=== PATIENT | female | born 1955 | race Caucasian/White ===

== ENCOUNTER 2017-03-21 07:00 | Day surgery (SDC) | payer MEDICARE, OTHER ==
[~2017-03-21 07:00] MED LIST: ACETAMINOPHEN 1,000 MG/100 ML BTL IV ONE; CEFAZOLIN 1 Gram 1 GM/50 ML BAG IVPB ONE; FAMOTIDINE 20MG TABLET PO ONE; MECLIZINE 25 MG TABLET PO ONE; METOCLOPRAMIDE 10 MG TABLET PO ONE
[2017-03-21] MEDS ORDERED: LIDOCAINE 2% MDV (20MG/ML) 20ML VIAL IV ONE (07:01)
[2017-03-21] MEDS ORDERED: GLYCOPYRROLATE 0.2 MG/ML ML IV ONE (07:01)
[2017-03-21] MEDS ORDERED: ONDANSETRON HCL IV 4 MG/2 ML VIAL IVP ONE (07:01)
[2017-03-21] MEDS ORDERED: HYDROCODONE/APAP 5/325MG TABLET PO ONE (07:01)
[2017-03-21] MEDS ORDERED: PROPOFOL 10 MG/ML VIAL IV ONE (07:01)
[2017-03-21] MEDS ORDERED: BUPIVACAINE 0.75% W/EPI MPF 30ML VIAL IVP ONE (07:01)
[2017-03-21] MEDS ORDERED: NEOSTIGMINE 1 MG/1 ML,10ML VIAL IV ONE (07:01)
[2017-03-21] MEDS ORDERED: MIDAZOLAM HCL 2MG/2ML VIAL IV ONE (07:01)
[2017-03-21] MEDS ORDERED: DEXAMETHASONE 4 MG/ML 1ML VIAL IVP ONE (07:01)
[2017-03-21] MEDS ORDERED: ROCURONIUM BROMIDE 50MG/5ML VIAL IV ONE (07:01)
[2017-03-21] MEDS ORDERED: HYDROMORPHONE HCL 2 MG/ML VIAL IV ONE ×2 (07:01)
[2017-03-21] MEDS ORDERED: EPHEDRINE SULFATE 50 MG/ML ML IV ONE (07:01)
[2017-03-21 07:59] LABS: BASO % 0.2 % (0-6); EOS % 0.9 % (0-6); GRAN % 60.9 % (47-80); HEMATOCRIT 41.8 % (35.0-47.0); HEMOGLOBIN 13.5 gm/dl (11.6-16.0); LYMPH % 25.1 % (16-45); MEAN CELL VOLUME 86.4 fl (81-97); MEAN CORPUSCULAR HEMOGLOBIN 27.9 pg (27-33); MEAN CORPUSCULAR HGB CONC 32.3 g/dl (32-36); MEAN PLATELET VOLUME 9.3 fl (7.4-10.4); MONO % 12.9 % (0-9); PLATELET COUNT 225 K/uL (130-400); RED BLOOD COUNT 4.84 M/uL (3.80-5.40); RED CELL DISTRIBUTION WIDTH 16.4 % (11.5-14.5); WHITE BLOOD COUNT W/O DIFF 5.7 K/uL (4.2-12.2)
[2017-03-21 08:43] LABS: BLOOD UREA NITROGEN 13 mg/dL (8-23); CREATININE 0.7 mg/dL (0.5-0.9); EST GLOMERULAR FILTRATION RATE > 60 mL/min; GLUCOSE,RANDOM 121 mg/dL (74-109)
--- NOTE | 2017-03-22 10:30 | Operative Note ---
DATE OF SURGERY: 03/21/2017 Surgeon: Avery Buitrago DO PREOPERATIVE DIAGNOSES: 1. Recurrent incarcerated umbilical hernia. 2. Reducible left femoral hernia. POSTOPERATIVE DIAGNOSES: 1. Recurrent incarcerated umbilical hernia. 2. Reducible left femoral hernia. OPERATION: Laparoscopic left femoral herniorrhaphy with mesh and umbilical herniorrhaphy with mesh. Indication: The patient is a 62-year-old male who presented to the clinic with pain and bulging in the left inguinal region. It appeared that she had a femoral hernia. She also had a recurrent incarcerated umbilical hernia. The prior repair was done as an open repair, open repair non-mesh based. She cannot recall when. We did discuss laparoscopic approach; risks, benefits, and alternatives. We let her know that we would fix her inguinal hernia at the same time. She is on chronic narcotics and we did discuss postop pain control. She understood this fully. PROCEDURE: Thereafter consent was signed and questions answered. She was taken to the operating room and placed in a supine position. General anesthesia was administered per the department of anesthesia. The patient's abdomen and inguinal region were prepped and draped in the usual fashion. The patient's right arm was tucked to the side. At this time, timeout was performed. She did receive preoperative antibiotic. The supraumbilical region was anesthetized with a total of 5 mL of 0.25% Sensorcaine with epinephrine. I did use her prior incision. A 2.5 cm curvilinear supraumbilical incision was made. This was carried down through the subcutaneous tissues where we encountered a hernia sac. This was dissected free from the surrounding fascial edges and the hernia sac was amputated. Stay sutures of 0 Vicryl were placed and through the hernia we placed a 10 mm blunt Amaury port. The patient was rotated into steep Trendelenburg position. Additional 5 mm left port and 5 mm right port were placed at the level of the navel at the mid clavicular line. At this time, general exam was done. The patient did have a moderate size femoral hernia. The patient also had a small right inguinal hernia as well. This was not clinically evident at the time of our consultation, and this was asymptomatic. Therefore, the peritoneum was scored in S-shaped fashion starting from the ASIS to the medial umbilical ligament on the patient's left. A large inferior flap was developed. I did skip over the femoral hernia and exposed tubercle ligament and symphysis pubis medially. The femoral hernia was then reduced with gentle traction. This was a fat-containing hernia sac. At this time, a large 3D Max mesh was obtained. This was placed covering the entire myopectineal orifice on the left. Tacks went at posterior aspect of the rectus, either side of the epigastric vessels, up and above triangle of pain and at level of Kirill's ligament. We had excellent overlap and coverage. At this time, I did re-peritonealize the side and placed another loop on the femoral hernia sac. I did switch to a 5 mm angled lens and this was placed through the left-sided lateral port. The Amaury trocar was removed and a 6.4 cm Ventralight mesh was obtained. This was placed in the intraperitoneal position. This did lay flat covering the umbilical hernia. At this time, the patient was leveled out. Pneumoperitoneum was released. All ports removed. The umbilical mesh was sutured in 4 spots with 2-0 Vicryl. The tails overlapped the fascia and were sutured in place as well. The umbilical skin was closed with 3-0 and 4-0 Vicryl, and 4-0 Vicryl was used for the port sites. Dermabond was placed, and she was taken to the recovery room in satisfactory condition. FINDINGS AT THE TIME OF SURGERY: Recurrent incarcerated umbilical hernia and left femoral hernia repaired as above. CC: Dr. Missy SUAREZ
== END 2017-03-21 11:35 | disposition home or self-care (01) ==
LOC: SUR 07:00
PROVIDERS: ATTEND Surgery
DX: K42.0 Umbilical hernia with obstruction, without gangrene (principal); K41.90 Unilateral femoral hernia, without obstruction or gangrene, not specified as recurrent; Z79.01 Long term (current) use of anticoagulants; G40.909 Epilepsy, unspecified, not intractable, without status epilepticus; E78.00 Pure hypercholesterolemia, unspecified; Z86.718 Personal history of other venous thrombosis and embolism
CPT/HCPCS: 49653; 49659; 00752; 85025; 80048; J2405; J0690; J1170; J3490; J2710

== ENCOUNTER 2019-05-06 20:18 | Inpatient (IN) | payer MEDICARE, OTHER ==
[2019-05-06] MEDS ORDERED: ALBUTEROL (0.5% CONCENTRATED) 2.5 MG/0.5 ML VIAL.NEB INH ONE (20:29)
[2019-05-06] MEDS ORDERED: IPRATROPIUM/ALBUTEROL (0.5MG/3MG) NEB INH ONE (20:30)
[2019-05-06] MEDS ORDERED: METHYLPREDNISOLONE PF 125MG/VIAL IVP ONE (20:40)
--- NOTE | 2019-05-06 20:48 | Emergency Department Record ---
History of Present Illness - General Chief Complaint: Shortness of breath Stated Complaint: DRISS,COUGH Time Seen by Provider: 05/06/19 20:30 Source: Patient, Family Mode of Arrival: Ambulatory Limitations: No limitations - History of Present Illness Initial Comments: The patient is here due to a cough and SOB for almost 2 weeks. She does have clear phlegm at times. The patient denies any fever, chills, CP or back pain. She does have a hx of COPD and does have inhallers at home but they are not helping. MD Complaint: Cough, Shortness of breath Onset/Timin -: Week(s) Improves With: Bronchodilators, Oxygen, Upright position Worsens With: Coughing Known History Of: COPD Associated Symptoms: Cough Treatments Prior to Arrival: Bronchodilator - Related Data Home Oxygen Therapy: No Allergies Allergy/AdvReac Type Severity Reaction Status Date / Time latex [LATEX] Allergy Unknown SWELLING Unverified 02/09/19 13:52 OF THE LIPS NSAIDS (Non-Steroidal Allergy Unknown SWOLLEN Unverified 02/09/19 13:52 Anti-Inflamma EYES, [NSAIDS (NON-STEROIDAL SWOLLEN ANTI-INFLAMMA] FACE gabapentin [From Neurontin] AdvReac Intermediate LOSS OF Unverified 02/09/19 13:52 VISSION AND BALANCE albuterol AdvReac WHEEZING Unverified 02/09/19 13:52 alprazolam [From Xanax] AdvReac FATIGUE Unverified 02/09/19 13:52 celecoxib [From Celebrex] AdvReac SWELLING Unverified 02/09/19 13:52 OF THE FACE codeine AdvReac NAUSEA AND Unverified 02/09/19 13:52 VOMITING diclofenac [From Voltaren] AdvReac SWELLING Unverified 02/09/19 13:52 OF THE LIPS phenytoin [From Dilantin] AdvReac PT UNSURE Unverified 02/09/19 13:52 OF REACTION zaleplon [From Sonata] AdvReac PT UNSURE Unverified 02/09/19 13:52 OF REACTION Travel Screening - Travel/Exposure Within Last 30 Days Have you traveled within the last 30 days?: No - Travel Symptoms Symptom Screening: None Review of Systems Constitutional: Reports: Malaise. Denies: Chills, Fever Eyes: Denies: Eye discharge ENT: Reports: Congestion Respiratory: Reports: Cough, Dyspnea. Denies: Hemoptysis Cardiovascular: Denies: Arrhythmia, Chest pain Endocrine: Reports: Fatigue Gastrointestinal: Denies: Diarrhea, Vomiting Genitourinary: Denies: Dysuria Musculoskeletal: Denies: Arthralgia Neurological: Denies: Abnormal gait Past Medical History - SOCIAL HISTORY Smoking Status: Current every day smoker Alcohol Use: None Drug Use: None - RESPIRATORY Hx Respiratory Disorders: Yes Hx Asthma: Yes Hx COPD: Yes (EARLY) Hx Pulmonary Embolism: Yes (POSSIBLE D/T POST SCARRING IN LEFT LUNG) - CARDIOVASCULAR Hx Cardio Disorders: Yes Hx Deep Vein Thrombosis: Yes Hx Edema: Yes Hx Vascular Disease: Yes - NEURO Hx Neuro Disorders: Yes Hx Seizures: Yes (MOSTLY DURING STRESS LAST ONE OVER YEAR AGO) - GI Hx GI Disorders: Yes Hx Abdominal Pain: Yes (LIH) Comment:: UMBILICAL AND LIH - Hx Genitourinary Disorders: No - ENDOCRINE Hx Endocrine Disorders: No - MUSCULOSKELETAL Hx Musculoskeletal Disorders: Yes Hx Arthritis: Yes (PSORIATIC) Hx Osteoporosis: Yes Comment:: SCOLIOSIS - PSYCH Hx Psych Problems: Yes Hx Depression: Yes - HEMATOLOGY/ONCOLOGY Hx Hematology/Oncology Disorders: Yes Hx Blood Disorders: Yes (TAKES BLOOD THINNER) Hx Cancer: Yes (CERVIX HAD TX WITH CYRO) Family Medical History Any Significant Family History?: No Family Hx Comment (NOT TO BE USED IN PLACE OF ITEMS BELOW): denies Physical Exam - General General Appearance: Alert, Oriented x3, Cooperative, No acute distress (The patient is doing much better after 3 breathing tx's and is speaking in full sentences.) - Head Head exam: Atraumatic, Normocephalic - Eye Eye exam: Normal appearance, PERRL, EOMI - ENT Throat exam: Normal inspection. negative: Tonsillar erythema, Tonsillar exudate - Neck Neck exam: Normal inspection, Full ROM. negative: Tenderness - Respiratory Respiratory exam: Decreased breath sounds, Wheezes (in all melgar.). negative: Normal lung sounds bilaterally, Accessory muscle use, Respiratory distress - Cardiovascular Cardiovascular Exam: Regular rate, Normal rhythm, Normal heart sounds - GI/Abdominal GI/Abdominal exam: Soft, Normal bowel sounds. negative: Tenderness - Extremities Extremities exam: Normal inspection, Full ROM, Normal capillary refill. negative: Tenderness - Neurological Neurological exam: Alert, Normal gait. negative: Abnormal gait, Motor sensory deficit - Psychiatric Psychiatric exam: negative: Anxious Course Vital Signs 05/06/19 05/06/19 20:25 20:40 Temperature 97.7 F Pulse Rate 84 Pulse Rate [ 96 H Pulse Ox Probe] Respiratory 26 H Rate Blood Pressure 199/120 Blood Pressure 143/101 [Left Arm] Pulse Ox 80 L 94 L - Reevaluation(s) Reevaluation #1: The patient is doing better but is still wheezing on exam Her O2 sats are running low 90's on 2 liters of O2. I do believe the patient will need an overnight stay and she does agree to the plan. We will admit the patient to Dr. Dean who is her PCP. 05/06/19 21:55 Medical Decision Making - Data Complexity MDM Data: Labs Ordered and/or Reviewed, X-Ray Ordered and/or Reviewed - Lab Data Result diagrams: 05/06/19 20:40 05/06/19 20:40 - Radiology Data Radiology results: Report reviewed (CXR: COPD. Neg for acute infiltrate.) Disposition Disposition: Admit Clinical Impression: COPD (chronic obstructive pulmonary disease) Qualifiers: COPD type: COPD with acute exacerbation Qualified Code(s): J44.1 - Chronic obstructive pulmonary disease with (acute) exacerbation Disposition: Still a Patient at [facility] Decision to Admit: Admit from ER Decision to Admit Date: 05/06/19 Decision to Admit Time: 21:56 Accepting Physician: Jermaine Time Discussed w/Accepting Physician: 21:56 Condition: (2) Stable Forms: Patient Portal Access Time of Disposition: 21:56 Quality - Quality Measures Quality Measures: N/A - Blood Pressure Screening View Details: Yes Does Patient Have Any of the Following: Active Dx of HTN Blood Pressure Classification: Hypertensive Reading Systolic Measurement: 199 Diastolic Measurement: 120 Screening for High Blood Pressure: Patient Exclusion, Hx of HTN [[id number]]
[2019-05-06 20:50] LABS: ABSOLUTE NEUTROPHIL COUNT 4.88; BASO % 0.1 % (0-6); EOS % 1.3 % (0-6); GRAN % 65.3 % (47-80); HEMATOCRIT 44.4 % (35.0-47.0); HEMOGLOBIN 14.4 gm/dl (11.6-16.0); LYMPH % 24.6 % (16-45); MEAN CELL VOLUME 96.5 fl (81-97); MEAN CORPUSCULAR HEMOGLOBIN 31.3 pg (27-33); MEAN CORPUSCULAR HGB CONC 32.4 g/dl (32-36); MEAN PLATELET VOLUME 9.3 fl (7.4-10.4); MONO % 8.7 % (0-9); PLATELET COUNT 185 K/uL (130-400); RED CELL DISTRIBUTION WIDTH 13.8 % (11.5-14.5); WHITE BLOOD COUNT W/O DIFF 7.5 K/uL (4.2-12.2)
[2019-05-06 21:02] LABS: INR 0.9; PROTHROMBIN TIME (PATIENT) 9.7 SECONDS (9.5-12.1)
[2019-05-06 21:06] LABS: BLOOD UREA NITROGEN 18 mg/dL (8-23); CREATININE 0.9 mg/dL (0.5-0.9); EST GLOMERULAR FILTRATION RATE > 60 mL/min; TOTAL PROTEIN 6.7 g/dL (6.6-8.7)
[2019-05-06 21:08] LABS: GLUCOSE,RANDOM 101 mg/dL (74-109)
[2019-05-06 21:11] LABS: ALB/GLOB RATIO 1.7 (1.1-1.8); ALBUMIN 4.2 g/dL (4.0-5.0); ALKALINE PHOSPHATASE 77 U/L (35-104); ALT/SGPT 12 U/L (<33); AST/SGOT 15 U/L (10.0-35.0)
[2019-05-06] MEDS: ALBUTEROL SULFATE (0.083%) 2.5 MG/3 ML NEB INH ONE ×2 (21:16→22:02)
[2019-05-06] MEDS ORDERED: MAGNESIUM SULFATE 16 MEQ in 0.9 % SODIUM CHLORIDE 100ML 100 ML IV ONE (21:49)
[2019-05-06] MEDS ORDERED: AZITHROMYCIN 500 MG in 0.9 % SODIUM CHLORIDE 250ML 250 ML IVPB ONE (21:49)
[2019-05-06] MEDS ORDERED: CEFTRIAXONE 1GM/50ML BAG 1 GM/50 ML BAG IVPB ONE (21:54)
[2019-05-06] MEDS ORDERED: ALBUTEROL SULFATE (0.083%) 2.5 MG/3 ML NEB INH ONE (22:01)
--- NOTE | 2019-05-06 22:01 | RADIOLOGY REPORT ---
EXAMINATION: Two View Chest Radiographs EXAM DATE: 05/06/2019 9:51 PM TECHNIQUE: Frontal and lateral views INDICATION: DRISS COMPARISON: None ENCOUNTER: Not applicable FINDINGS: The heart, mediastinum, and pulmonary vasculature are normal. No lung consolidation or pleural effu sions are present. IMPRESSION: No acute pulmonary disease process Dictated by: Yesy Burger DO on 05/06/2019 9:59 PM. .
[2019-05-06] MEDS ORDERED: FLUTICASONE/SALMETEROL 500/50 DISKUS INH SCH (22:53)
[2019-05-06] MEDS ORDERED: Non-Formulary MISC (Duloxetine Hcl [Cymbalta] 60 MG) PO SCH (22:53)
[2019-05-06] MEDS ORDERED: LEVETIRACETAM PO SCH (22:53)
[2019-05-06] MEDS ORDERED: Non-Formulary MISC (Atorvastatin Calcium [Lipitor] 40 MG) PO SCH (22:53)
[2019-05-07] MEDS ORDERED: LEVETIRACETAM PO SCH (00:15)
[2019-05-07] MEDS ORDERED: LEVETIRACETAM 1500 MG PO SCH (00:15)
[2019-05-07] MEDS: GUAIFENESIN/D-METH. 10 ML UDC PO PRN ×4 (00:16→17:45)
[2019-05-07] MEDS: LEVETIRACETAM 500 MG TABLET PO SCH ×3 (00:17→22:53)
[2019-05-07] MEDS: BENZONATATE 100 MG CAPSULE PO PRN ×3 (00:18→17:45)
[2019-05-07] MEDS: APIXABAN 5MG TABLET PO SCH ×3 (00:19→22:53)
[2019-05-07] MEDS: ATORVASTATIN 20 MG TABLET PO SCH ×2 (00:20→22:53)
[2019-05-07] MEDS: ALBUTEROL SULFATE (0.083%) 2.5 MG/3 ML NEB INH PRN ×2 (00:25→16:59)
[2019-05-07] MEDS: IPRATROPIUM/ALBUTEROL (0.5MG/3MG) NEB INH SCH ×6 (00:30→22:10)
[2019-05-07] MEDS ORDERED: NICOTINE14 MG/24 HOUR PATCH TD SCH (01:15)
[2019-05-07] MEDS: ACETAMINOPHEN 325 MG TAB PO PRN ×3 (05:17→20:53)
[2019-05-07] MEDS ORDERED: FLUTICASONE PROPIONATE 50MCG NASAL 16 GM BTL PRN (08:56)
[2019-05-07] MEDS: DULOXETINE HCL 30 MG CAPSULE.DR PO SCH (09:37)
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
[2019-05-07] MEDS: NICOTINE14 MG/24 HOUR PATCH TD SCH (09:40)
[2019-05-07] MEDS: MONTELUKAST SODIUM 10MG TABLET PO SCH (09:40)
[2019-05-07] MEDS: KETOROLAC 30 MG/ML VIAL IVP PRN ×2 (09:41→17:45)
[2019-05-07] MEDS: DOXYCYCLINE HYCLATE 100 MG CAPSULE PO SCH ×2 (09:43→22:53)
[2019-05-07] MEDS ORDERED: METHYLPREDNISOLONE PF 125MG/VIAL IVP SCH (10:00)
[2019-05-07] MEDS ORDERED: BREO (FLUTICASONE/VILANTEROL) 200MCG/25MCG INHALER INH SCH (10:00)
[2019-05-07] MEDS ORDERED: NICOTINE 21 MG/24 HOUR PATCH TD SCH (10:00)
[2019-05-07] MEDS ORDERED: BREO (FLUTICASONE/VILANTEROL) 200MCG/25MCG INHALER INH ONE (10:00)
[2019-05-07] MEDS ORDERED: UMECLIDINIUM BROMIDE (INCRUSE) 62.5MCG IH SCH (10:00)
[2019-05-07] MEDS ORDERED: ATORVASTATIN 20 MG TABLET PO SCH (22:00)
[2019-05-07] MEDS: CEFTRIAXONE 1GM/50ML BAG 1 GM/50 ML BAG IVPB SCH (22:48)
[2019-05-08 06:45] LABS: HEMATOCRIT 42.3 % (35.0-47.0); HEMOGLOBIN 13.7 gm/dl (11.6-16.0); MEAN CELL VOLUME 96.4 fl (81-97); MEAN CORPUSCULAR HEMOGLOBIN 31.2 pg (27-33); MEAN CORPUSCULAR HGB CONC 32.4 g/dl (32-36); MEAN PLATELET VOLUME 9.6 fl (7.4-10.4); PLATELET COUNT 166 K/uL (130-400); RED BLOOD COUNT 4.39 M/uL (3.80-5.40); RED CELL DISTRIBUTION WIDTH 13.7 % (11.5-14.5); WHITE BLOOD COUNT W/O DIFF 9.8 K/uL (4.2-12.2)
[2019-05-08] MEDS: LABETALOL HCL 5MG/ML, 20ML VIAL IV PRN (06:51)
[2019-05-08 06:59] LABS: BLOOD UREA NITROGEN 24 mg/dL (8-23); CREATININE 0.8 mg/dL (0.5-0.9); EST GLOMERULAR FILTRATION RATE > 60 mL/min; GLUCOSE,RANDOM 100 mg/dL (74-109)
[2019-05-08 07:16] LABS: ABSOLUTE NEUTROPHIL COUNT 7.58; PLATELET ESTIMATE NORMAL (NORMAL)
[2019-05-08] MEDS: IPRATROPIUM/ALBUTEROL (0.5MG/3MG) NEB INH SCH ×5 (07:51→18:25)
[2019-05-08] MEDS ORDERED: AMLODIPINE BESYLATE 5MG TAB PO ONE (08:52)
[2019-05-08] MEDS: MONTELUKAST SODIUM 10MG TABLET PO SCH (09:35)
[2019-05-08] MEDS: DOXYCYCLINE HYCLATE 100 MG CAPSULE PO SCH ×2 (09:35→23:00)
[2019-05-08] MEDS: BENZONATATE 100 MG CAPSULE PO PRN ×2 (09:35→18:42)
[2019-05-08] MEDS: APIXABAN 5MG TABLET PO SCH ×2 (09:36→23:00)
[2019-05-08] MEDS: LEVETIRACETAM 500 MG TABLET PO SCH ×2 (09:36→23:00)
[2019-05-08] MEDS: GUAIFENESIN/D-METH. 10 ML UDC PO PRN ×2 (09:36→18:42)
[2019-05-08] MEDS: DULOXETINE HCL 30 MG CAPSULE.DR PO SCH (09:36)
[2019-05-08] MEDS: PREDNISONE 20 MG TAB PO SCH (09:41)
[2019-05-08] MEDS: NICOTINE14 MG/24 HOUR PATCH TD SCH (09:42)
--- NOTE | 2019-05-08 16:21 | Physician Progress Note ---
Subjective - Date Date of Physician Progress Note: 05/08/19 - Subjective Subjective Comment: The patient says she is doing better since admission. On initial evaluation this morning she still had wheezing throughout but on assessment this afternoon her lung sounds have improved. Objective - Vital Signs Vital Signs: Vital Signs - Last 24 Hrs Temp Pulse Pulse Resp BP BP Pulse Ox 05/08/19 15:37 89 18 95 05/08/19 12:48 80 18 92 L 05/08/19 12:00 98.4 F 89 20 151/79 89 L 05/08/19 09:20 79 18 94 L 05/08/19 09:00 89 18 05/08/19 07:52 18 94 L 05/08/19 07:36 66 16 148/96 94 L 05/08/19 06:00 72 18 192/105 92 L 05/08/19 00:00 97.9 F 85 20 172/98 96 05/07/19 22:10 78 16 94 L 05/07/19 20:00 97.8 F 91 H 20 162/90 94 L 05/07/19 19:29 77 18 94 L 05/07/19 18:30 159/91 05/07/19 17:20 98.0 F 88 22 165/103 92 L 05/07/19 16:59 87 18 99 - General General Appearance: Alert, Oriented x3, Cooperative, No acute distress Limitations: No limitations - Head Head exam: Atraumatic, Normocephalic, Normal inspection - Eye Eye exam: Normal appearance, PERRL, EOMI - ENT Throat exam: Normal inspection. negative: Tonsillar erythema, Tonsillar exudate - Neck Neck exam: Normal inspection, Full ROM. negative: Tenderness - Respiratory Respiratory exam: Decreased breath sounds (Bases), Wheezes (Throughout). negative: Normal lung sounds bilaterally, Accessory muscle use, Respiratory dist ress - Cardiovascular Cardiovascular Exam: Regular rate, Normal rhythm, Normal heart sounds Peripheral Pulses: 2+: Dorsalis Pedis (R), Dorsalis Pedis (L) - GI/Abdominal GI/Abdominal exam: Soft, Normal bowel sounds. negative: Tenderness - Rectal Rectal exam: Deferred - exam: Deferred - Extremities Extremities exam: Normal inspection, Full ROM, Normal capillary refill. ne gative: Pedal edema, Tenderness - Back Back exam: Reports: Normal inspection. Denies: CVA tenderness (R), CVA tenderness (L) - Neurological Neurological exam: Alert, Normal gait, Oriented X3 - Psychiatric Psychiatric exam: Normal affect, Normal mood - Skin Skin exam: Dry, Intact, Warm Assessment and Plan - Inpatient Certification Inpatient Certification: COPD exacerbation 05/08/19 16:18 - Assessment and Plan (1) COPD (chronic obstructive pulmonary disease) Current Visit: Yes Status: Acute Qualifiers: COPD type: COPD with acute exacerbation Qualified Code(s): J44.1 - Chronic obstructive pulmonary disease with (acute) exacerbation Base Code: J44.9 - CHRONIC OBSTRUCTIVE PULMONARY DISEASE, UNSPECIFIED Comment: 05/08/19: -Pt hypoxic in 80's upon arrival to ER. Never been hospitalized for COPD exacerbation before. Pt received Albuterol neb x2 and DuoNeb x1, Solumedrol 125mg IVP, Magnesium Sulfate 16 MEQ IV and Rocephin 1gm in ER. This chirag sats up to 90's with 2L O2. -Supplemental O2 titrate to keep sat > 90% (no home O2), no retractions -CBC unremarkable (no WBC elevation), CO2 mildly elevated at 32.0 -Afebrile -Continues tachypnea -Albuterol Neb Q4H PRN DRISS -Treating with Rocephin 1gm BID + Doxycycline 100mg BID -Tessalon & Robitussin PRN cough -D/C home Spiriva, Proair & Advair while hospitalized -Continue home Singulair - 05/08: Patient continuing to drop saturations with ambulation. (2) DVT prophylaxis Current Visit: Yes Status: Acute Base Code: Z29.9 - ENCOUNTER FOR PROPHYLACTIC MEASURES, UNSPECIFIED Comment: 05/08/19: -Lovenox contraindicated. Pt on Eliquis daily for chronic DVT LLE -Nursing to encourage independent ambulation in the room -SCD while in bed (3) Hypoxia Current Visit: Yes Status: Acute Base Code: R09.02 - HYPOXEMIA Comment: 05/08/19: -Pt hypoxia at 80% RA upon arrival to ER (received Albuterol x2, Duoneb x1, Mag IV, Solumedrol IV, and Rocephin in ER) -Has been > 90% on 2L O2 since admission. 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 -Hx COPD, no hospitalization required for exacerbation previously -Afebrile -CXR Neg for acute pulmonary process -CBC/CMP WNL (CO2 elevated at 32.0) -Treating COPD with Rocephin 1gm BID and Doxycycline 100mg BID -Albuterol neb ordered Q4H PRN DRISS -Vibratory PEP (flutter valve) ordered p/RT -hall monitor with pulse ox ordered - O2 saturations declinewith ambulation. Will assess the need for intermittent oxygen in the morning. (4) Full code status Current Visit: Yes Status: Acute Base Code: Z78.9 - OTHER SPECIFIED HEALTH STATUS Comment: 05/08/19: -Pt full code status this admission Results - Labs Result Diagrams: 05/08/19 06:25 05/08/19 06:25 Labs Last 24 Hours: Laboratory Results - last 24 hr 05/08/19 05/08/19 06:25 06:25 WBC 9.8 RBC 4.39 Hgb 13.7 Hct 42.3 MCV 96.4 MCH 31.2 MCHC 32.4 RDW 13.7 Plt Count 166 MPV 9.6 Neutrophils % 77.0 Band Neutrophils % 0.0 Eosinophils % Not Reportable Basophils % Not Reportable Absolute Neutrophils 7.58 Lymphocytes 19.0 Monocytes 4.0 Basophils 0.0 Platelet Estimate Normal RBC Morphology Normal Eosinophil Count 0.0 Sodium 143 Potassium 4.0 Chloride 101 Carbon Dioxide 31.0 H Anion Gap 11.0 BUN 24 H Creatinine 0.8 Estimated GFR > 60 Random Glucose 100 Calcium 9.1 DVT/PE Assessment - Risk for VTE Risk for VTE: No Risk Level: Moderate Risk Assessment Date: 05/07/19 Risk Assessment Time: 09:34 VTE Orders Placed or Will Be Placed: No VTE Reason for No Prophylaxis: Contraindicated (On Eliquis) - Active Medicaitons Current Medications: Current Medications Acetaminophen (Tylenol 325mg) 650 mg PO Q6H PRN PRN Reason: PAIN - MILD(1-4)/FEVER Last Admin: 05/07/19 20:53 Dose: 650 mg Documented by: Albuterol Sulfate (Albuterol Sulfate) 2.5 mg INH RESP.Q4H PRN PRN Reason: DIFFICULTY IN BREATHING Last Admin: 05/07/19 16:59 Dose: 2.5 mg Documented by: Albuterol/Ipratropium (Duoneb) 3 ml INH RESP.Q4H.[facility] Last Admin: 05/08/19 15:37 Dose: 3 ml Documented by: Apixaban (Eliquis) 5 mg PO BID [facility] Last Admin: 05/08/19 09:36 Dose: 5 mg Documented by: Atorvastatin Calcium (Lipitor) 40 mg PO QHS [facility] Last Admin: 05/07/19 22:53 Dose: 40 mg Documented by: Benzonatate (Tessalon) 100 mg PO TID PRN PRN Reason: COUGH Last Admin: 05/08/19 09:35 Dose: 100 mg Documented by: Doxycycline Hyclate (Vibramycin) 100 mg PO BID [facility] Last Admin: 05/08/19 09:35 Dose: 100 mg Documented by: Duloxetine HCl (Cymbalta) 60 mg PO DAILY [facility] Last Admin: 05/08/19 09:36 Dose: 60 mg Documented by: Fluticasone Propionate (Flonase) 1 spray NA DAILY PRN PRN Reason: ALLERGIES Guaifenesin (Robitussin Dm) 10 ml PO Q4H PRN PRN Reason: COUGH Last Admin: 05/08/19 09:36 Dose: 10 ml Documented by: CEFTRIAXONE 1GM/50ML BAG (Ceftriaxone 1 Gm-D5w Bag) 1 gm in 50 mls @ 100 mls/hr IVPB Q24H [facility] Last Infusion: 05/07/19 23:30 Dose: Infused Documented by: Ketorolac Tromethamine (Toradol) 30 mg IVP Q8H PRN PRN Reason: PAIN - MODERATE (5-7) Last Admin: 05/07/19 17:45 Dose: 30 mg Documented by: Labetalol HCl (Labetalol) 10 mg IV Q10M PRN PRN Reason: HYPERTENSIVE EMERGENCY Last Admin: 05/08/19 06:51 Dose: 10 mg Documented by: Levetiracetam (Keppra) 1,500 mg PO BID [facility] Last Admin: 05/08/19 09:36 Dose: 1,500 mg Documented by: Montelukast Sodium (Singulair) 10 mg PO DAILY [facility] Last Admin: 05/08/19 09:35 Dose: 10 mg Documented by: Nicotine (Nicotine 14mg) 1 patch TD DAILY [facility] Last Admin: 05/08/19 09:42 Dose: Not Given Documented by: Prednisone (Prednisone 20mg) 40 mg PO DAILYWM [facility] Last Admin: 05/08/19 09:41 Dose: 40 mg Documented by: AMI Plan - Labs Result Diagrams: 05/08/19 06:25 05/08/19 06:25
[2019-05-08] MEDS: ATORVASTATIN 20 MG TABLET PO SCH (23:00)
[2019-05-08] MEDS: CEFTRIAXONE 1GM/50ML BAG 1 GM/50 ML BAG IVPB SCH (23:00)
[2019-05-09] MEDS: IPRATROPIUM/ALBUTEROL (0.5MG/3MG) NEB INH SCH ×4 (03:44→14:27)
[2019-05-09] MEDS: LABETALOL HCL 5MG/ML, 20ML VIAL IV PRN (05:54)
[2019-05-09] MEDS: GUAIFENESIN/D-METH. 10 ML UDC PO PRN (06:01)
[2019-05-09] MEDS: BENZONATATE 100 MG CAPSULE PO PRN (06:02)
[2019-05-09 06:56] LABS: ABSOLUTE NEUTROPHIL COUNT 6.81; BASO % 0.3 % (0-6); EOS % 0.2 % (0-6); GRAN % 66.9 % (47-80); HEMATOCRIT 43.6 % (35.0-47.0); HEMOGLOBIN 14.1 gm/dl (11.6-16.0); LYMPH % 25.6 % (16-45); MEAN CELL VOLUME 96.2 fl (81-97); MEAN CORPUSCULAR HEMOGLOBIN 31.1 pg (27-33); MEAN CORPUSCULAR HGB CONC 32.3 g/dl (32-36); MEAN PLATELET VOLUME 9.4 fl (7.4-10.4); PLATELET COUNT 178 K/uL (130-400); RED BLOOD COUNT 4.53 M/uL (3.80-5.40); RED CELL DISTRIBUTION WIDTH 13.9 % (11.5-14.5); WHITE BLOOD COUNT W/O DIFF 10.2 K/uL (4.2-12.2)
[2019-05-09 07:05] LABS: BLOOD UREA NITROGEN 21 mg/dL (8-23); CREATININE 0.8 mg/dL (0.5-0.9); EST GLOMERULAR FILTRATION RATE > 60 mL/min; GLUCOSE,RANDOM 119 mg/dL (74-109)
[2019-05-09] MEDS: PREDNISONE 20 MG TAB PO SCH (08:56)
[2019-05-09] MEDS: LEVETIRACETAM 500 MG TABLET PO SCH (08:59)
[2019-05-09] MEDS: MONTELUKAST SODIUM 10MG TABLET PO SCH (09:00)
[2019-05-09] MEDS: DULOXETINE HCL 30 MG CAPSULE.DR PO SCH (09:00)
[2019-05-09] MEDS: DOXYCYCLINE HYCLATE 100 MG CAPSULE PO SCH (09:00)
[2019-05-09] MEDS: APIXABAN 5MG TABLET PO SCH (09:00)
[2019-05-09] MEDS: NICOTINE14 MG/24 HOUR PATCH TD SCH (09:01)
[2019-05-09] MEDS ORDERED: AMLODIPINE BESYLATE 5MG TAB PO SCH (10:00)
--- NOTE | 2019-05-09 11:36 | Discharge Summary ---
Providers Discharge Summary Date: 05/09/19 Date of admission: 05/06/19 22:23 Attending physician: ROSENDO DEAN Primary care physician: ROSENDO DEAN Physical Exam - Vital Signs Vital Signs: Vital Signs - Last 24 Hrs Temp Pulse Pulse Pulse Resp BP BP 05/09/19 10:00 75 16 05/09/19 09:00 70 05/09/19 08:00 97.6 F 66 16 154/77 05/09/19 06:34 156/94 05/09/19 06:26 72 20 05/09/19 05:30 20 182/104 05/09/19 00:00 97.9 F 77 20 158/82 05/08/19 20:00 97.6 F 91 H 18 151/88 05/08/19 18:25 89 18 05/08/19 17:22 85 135/79 05/08/19 15:37 89 18 05/08/19 12:48 80 18 05/08/19 12:00 98.4 F 89 20 151/79 Pulse Ox 05/09/19 10:00 91 L 05/09/19 09:00 05/09/19 08:00 88 L 05/09/19 06:34 05/09/19 06:26 90 L 05/09/19 05:30 91 L 05/09/19 00:00 91 L 05/08/19 20:00 92 L 05/08/19 18:25 93 L 05/08/19 17:22 05/08/19 15:37 95 05/08/19 12:48 92 L 05/08/19 12:00 89 L - General General Appearance: Alert, Oriented x3, Cooperative, No acute distress Limitations: No limitations - Head Head exam: Atraumatic, Normocephalic, Normal inspection - Eye Eye exam: Normal appearance, PERRL, EOMI - ENT Throat exam: Normal inspection. negative: Tonsillar erythema, Tonsillar exudate - Neck Neck exam: Normal inspection, Full ROM. negative: Tenderness - Respiratory Respiratory exam: Decreased breath sounds (Bases), Wheezes (Throughout). negative: Normal lung sounds bilaterally, Accessory muscle use, Respiratory distress - Cardiovascular Cardiovascular Exam: Regular rate, Normal rhythm, Normal heart sounds Peripheral Pulses: 2+: Dorsalis Pedis (R), Dorsalis Pedis (L) - GI/Abdominal GI/Abdominal exam: Soft, Normal bowel sounds. negative: Tenderness - Rectal Rectal exam: Deferred - exam: Deferred - Extremities Extremities exam: Normal inspection, Full ROM, Normal capillary refill. negative: Pedal edema, Tenderness - Back Back exam: Reports: Normal inspection. Denies: CVA tenderness (R), CVA tenderness (L) - Neurological Neurological exam: Alert, Normal gait, Oriented X3 - Psychiatric Psychiatric exam: Normal affect, Normal mood - Skin Skin exam: Dry, Intact, Warm Hospitalization - Hospitalization Admission Diagnosis: 1. Acute COPD Exacerbation with Hypoxia. - Problem List/Discharge Diagnosis (1) Hypoxia Current Visit: Yes Status: Acute Base Code: R09.02 - HYPOXEMIA Comment: 05/09/19: -Pt hypoxia at 80% RA upon arrival to ER (received Albuterol x2, Duoneb x1, Mag IV, Solumedrol IV, and Rocephin in ER) -Has been > 90% on 2L O2 since admission. No home O2 [employer]. -Hx COPD, no hospitalization required for exacerbation previously -Afebrile -CXR Neg for acute pulmonary process -CBC/CMP WNL (CO2 elevated at 32.0) -Treating COPD with Rocephin 1gm BID and Doxycycline 100mg BID -Albuterol neb ordered Q4H PRN DRISS -Vibratory PEP (flutter valve) ordered p/RT -school lunch monitor with pulse ox ordered - O2 saturations declinewith ambulation. Will assess the need for intermittent oxygen in the morning. - 05/09: O2 qualifier this morning notes; requirements of 4liters at rest and 6 liters with ambulation to maintain saturations > 88%. (2) COPD (chronic obstructive pulmonary disease) Current Visit: Yes Status: Acute Discharge Diagnosis: COPD type: COPD with acute exacerbation Qualified Code(s): J44.1 - Chronic obstructive pulmonary disease with (acute) exacerbation Base Code: J44.9 - CHRONIC OBSTRUCTIVE PULMONARY DISEASE, UNSPECIFIED Comment: 05/09/19: -Pt hypoxic in 80's upon arrival to ER. Never been hospitalized for COPD exacerbation before. Pt received Albuterol neb x2 and DuoNeb x1, Solumedrol 125mg IVP, Magnesium Sulfate 16 MEQ IV and Rocephin 1gm in ER. This chirag sats up to 90's with 2L O2. -Supplemental O2 titrate to keep sat > 90% (no home O2), no retractions -CBC unremarkable (no WBC elevation), CO2 mildly elevated at 32.0 -Afebrile -Continues tachypnea -Albuterol Neb Q4H PRN DRISS -Treating with Rocephin 1gm BID + Doxycycline 100mg BID -Tessalon & Robitussin PRN cough -D/C home Spiriva, Proair & Advair while hospitalized -Continue home Singulair - 05/08: Patient continuing to drop saturations with ambulation. (3) DVT prophylaxis Current Visit: Yes Status: Acute Base Code: Z29.9 - ENCOUNTER FOR PROPHYLACTIC MEASURES, UNSPECIFIED Comment: 05/09/19: -Lovenox contraindicated. Pt on Eliquis daily for chronic DVT LLE -Nursing to encourage independent ambulation in the room -SCD while in bed (4) Full code status Current Visit: Yes Status: Acute Base Code: Z78.9 - OTHER SPECIFIED HEALTH STATUS Comment: 05/09/19: -Pt full code status this admission - Hospitalization Course Hospital Course: 05/07/19: Patient presented to ER for cough and SOB x2 weeks. Cough is productive with clear sputum. Denies fever, chills, CP, back pain. Patient has been using home inhalers without relief. Patient denies previous admission for COPD exacerbation. Patient's O2 was 80% upon examination in the ER and unable to speak in full sentences. Patient required a significant amount of medications and treatments to get O2 > 90%. Patient admitted for IV antibiotics and breathing treatments. PCP: Rosendo Dean ED Course: Vital Signs Temp Pulse Pulse Resp BP BP Pulse Ox 05/07/19 07:56 82 22 05/07/19 07:38 97.7 F 67 20 146/76 94 L 05/07/19 05:00 97.9 F 72 20 153/84 92 L 05/07/19 00:25 77 18 93 L 05/06/19 22:55 98.0 F 78 20 145/79 92 L 05/06/19 22:19 79 24 143/83 92 L 05/06/19 22:02 76 18 93 L 05/06/19 21:18 77 18 93 L 05/06/19 21:12 78 24 136/80 92 L 05/06/19 20:40 84 96 H 18 143/101 91 L 05/06/19 20:25 97.7 F 84 26 H 199/120 80 L Intake & Output 05/05/19 05/06/19 05/07/19 05/08/19 06:59 06:59 06:59 06:59 Intake Total 290 Balance 290 Weight 153 lb 11.2 oz Intake: IV 50 Oral 240 Other: Weight Measurement Method Standing Scale Laboratory 05/06/19 05/06/19 05/06/19 20:40 20:40 20:40 WBC RBC Hgb Hct MCV MCH MCHC RDW Plt Count MPV Gran % Lymphocytes % Monocytes % Eosinophils % Basophils % Absolute Neutrophils PT 9.7 INR 0.9 APTT 25.0 Sodium 144 Potassium 4.1 Chloride 102 Carbon Dioxide 32.0 H Anion Gap 10.0 BUN 18 Creatinine 0.9 Estimated GFR > 60 Random Glucose 101 Calcium 9.4 Total Bilirubin 0.20 AST 15 ALT 12 Alkaline Phosphatase 77 C-Reactive Protein 0.08 Total Protein 6.7 Albumin 4.2 Globulin 2.5 Albumin/Globulin Ratio 1.7 05/06/19 20:40 WBC 7.5 RBC 4.60 Hgb 14.4 Hct 44.4 MCV 96.5 MCH 31.3 MCHC 32.4 RDW 13.8 Plt Count 185 MPV 9.3 Gran % 65.3 Lymphocytes % 24.6 Monocytes % 8.7 Eosinophils % 1.3 Basophils % 0.1 Absolute Neutrophils 4.88 PT INR APTT Sodium Potassium Chloride Carbon Dioxide Anion Gap BUN Creatinine Estimated GFR Random Glucose Calcium Total Bilirubin AST ALT Alkaline Phosphatase C-Reactive Protein Total Protein Albumin Globulin Albumin/Globulin Ratio Past Surgical History Date/Surgery BREAST REDUCTION RTKA RT KNEE SCOPE, ACL DANN HAND AND WRIST SX UMB HERNIA REPAIR T/A RHIZOTOMY, INJECTIONS C-SCOPE Past Medical History Hx Respiratory Disorders Yes Hx Asthma Yes Hx Chronic Obstructive Pulmonary Disease Yes: EARLY (COPD) Hx Pulmonary Embolism Yes: POSSIBLE D/T POST SCARRING IN LEFT LUNG Hx Cardiovascular Disorders Yes Hx Deep Vein Thrombosis Yes Hx Edema Yes Hx of Prosthetic Valve No: DENIES Hx Vascular Disease Yes Hx Neurological Disorders Yes Hx Seizures Yes: MOSTLY DURING STRESS LAST ONE OVER YEAR AGO Hx Gastrointestinal Disorders Yes Hx Abdominal Pain Yes: LIH Comment: UMBILICAL AND LIH Hx Genitourinary Disorders No Hx Endocrine Disorders No Hx Musculoskeletal Disorders Yes Hx Arthritis Yes: PSORIATIC Hx Back Problems Yes: RHIZ, INJ NECK AND LOW BACK Hx Osteoporosis Yes Comment: SCOLIOSIS Hx Psychiatric Problems Yes Hx Depression Yes Hx Hematology/Oncology Disorders Yes Hx Blood Disorders Yes: TAKES BLOOD THINNER 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 No Family Hx Comment (NOT TO BE USED IN denies PLACE OF ITEMS BELOW) Skin Risk Assessment Scale Sensory Perception No Impairment Moisture Risk Rarely Moist Activity Risk Walks Occasionally Mobility Risk No Limitations Nutrition Risk Adequate Friction & Shear Risk No Apparent Problem Skin Risk Total Score (points) 21 Skin Risk Evaluation No Risk Wound Present on Admission Wound present upon admission? No Medications Acetaminophen (Tylenol 325mg) 650 mg PO Q6H PRN PRN Reason: PAIN - MILD(1-4)/FEVER Albuterol Sulfate (Albuterol Sulfate) 2.5 mg INH RESP.Q4H PRN PRN Reason: DIFFICULTY IN BREATHING Albuterol/Ipratropium (Duoneb) 3 ml INH RESP.Q4H.[facility] Last Admin: 05/07/19 07:14 Dose: Not Given Apixaban (Eliquis) 5 mg PO BID [facility] Atorvastatin Calcium (Lipitor) 40 mg PO QHS [facility] Duloxetine HCl (Cymbalta) 60 mg PO DAILY [facility] Last Admin: 05/07/19 09:37 Dose: 60 mg Documented by: ART CEFTRIAXONE 1GM/50ML BAG (Ceftriaxone 1 Gm-D5w Bag) 1 gm in 50 mls @ 100 mls/hr IVPB Q24H [facility] Levetiracetam (Keppra) 1,500 mg PO BID [facility] Methylprednisolone Sodium Succinate (Solu-Medrol) 60 mg IVP DAILY [facility] Montelukast Sodium (Singulair) 10 mg PO DAILY [facility] Nicotine (Nicotine 14mg) 1 patch TD DAILY [facility] Problems COPD (chronic obstructive pulmonary disease) (Acute) J44.9 05/07/19: Patient awake and alert x 4 upon examination. Patient states she is able to breathe better than when she came in yesterday. Patient is able to speak in full sentences, but still having wheezing throughout all melgar. Patient denies previous admission for COPD exacerbation. Coughing up clear sputum. Will order vibratory PEP (flutter valve) from RT for patient to use in room. Remains afebrile, but tachypneic. Patient reports a headache and states Acetaminophen has not helped. No new nursing concerns noted. Patient explained POC and all questions answered. Procedures: Imaging and X-Rays 05/06/19 20:40 CHEST 2 VIEWS [RAD] Stat Cardiology Procedures 05/06/19 22:53 Book Solicitor .Continuous Abnormal Labs: Abnormal Lab Results 05/06/19 05/08/19 05/09/19 Range/Units 20:40 06:25 06:30 Carbon Dioxide 32.0 H 31.0 H (22-29) mmol/L BUN 24 H (8-23) mg/dL Random Glucose 119 H (74-109) mg/dL Condition at Discharge: (2) Stable Discharge Medications - Discharge Medications Prescriptions: Albuterol Sulfate 0.083% [Neb] [Albuterol Sulfate] 2.5 mg INH RESP.Q4H PRN #120 nebulization solution PRN Reason: Difficulty In Breathing Apixaban [Eliquis] 5 mg PO BID 90 Days #180 tab Amlodipine Besylate [Norvasc] 10 mg PO DAILY #30 tab Prednisone [Prednisone 20Mg] 40 mg PO DAILYWM #6 tab Tiotropium [place] [Spiriva Respimat] 1.25 mcg IH DAILY #1 puff Benzonatate [Tessalon Perles] 100 mg PO TID PRN #20 capsule PRN Reason: Cough Doxycycline Hyclate [Vibramycin] 100 mg PO BID #10 capsule Home Medications: Ambulatory Orders Fluticasone Propionate 50 mcg NS QD PRN spray 04/28/17 [Last Taken Unknown] Albuterol Sulfate [Proair Hfa] 2 puff INH Q4H PRN 05/07/19 [Last Taken Unknown] Atorvastatin Calcium 40 mg PO QHS 05/07/19 [Last Taken Unknown] Albuterol Sulfate 0.083% [Neb] [Albuterol Sulfate] 2.5 mg INH RESP.Q4H PRN #120 nebulization solution 05/09/19 [Last Taken Unknown] Amlodipine Besylate [Norvasc] 10 mg PO DAILY #30 tab 05/09/19 [Last Taken Unknown] Apixaban [Eliquis] 5 mg PO BID 90 Days #180 tab 05/09/19 [Last Taken Unknown] Benzonatate [Tessalon Perles] 100 mg PO TID PRN #20 capsule 05/09/19 [Last Taken Unknown] Doxycycline Hyclate [Vibramycin] 100 mg PO BID #10 capsule 05/09/19 [Last Taken Unknown] Duloxetine HCl [Cymbalta] 60 mg PO DAILY capsule. 05/09/19 [Last Taken Unknown] Fluticasone Propionate [Flonase] 1 spray NA DAILY PRN btl 05/09/19 [Last Taken Unknown] Ipratropium/Albuterol [Duoneb] 3 ml INH RESP.Q4H.[place] ampul.neb 05/09/19 [Last Taken Unknown] Ketorolac Tromethamine [Toradol] 30 mg IVP Q8H PRN vial 05/09/19 [Last Taken Unknown] Levetiracetam [Keppra] 1,500 mg PO BID tablet 05/09/19 [Last Taken Unknown] Prednisone [Prednisone 20Mg] 40 mg PO DAILYWM #6 tab 05/09/19 [Last Taken Unknown] Tiotropium [place] [Spiriva Respimat] 1.25 mcg IH DAILY #1 puff 05/09/19 [Last Taken Unknown] Discharge Plan - Discharge Instructions Activity at Discharge: Wear Oxygen At All Times Diet at Discharge: Low Salt Diet Additional Instructions: Follow up with Dr. Dean on Tuesday05/11/2019 as previously scheduled. Take all medications as prescribed until seen in the office. Resume your albuterol treatments four times daily. A short script has been sent to [facility] until [facility] can fill for you. Wear oxygen at all times. 4 liters while resting and 6 liters while up and walking. We will re-assess your oxygen requirements when seen in the office. Quality Measures - Quality Measures Quality Measures: Advance Directives, Documentation of Current Medications in Medical Record, Elder Maltreatment Screen and Follow-Up Plan, Screening for High Blood Pressure and F/U Documented - Current Medications Quality Measure: Measure #130: Documentation of Current Medications Documentation of Current Medications: <Current Medications Documented/Reviewed> [G8427] - Blood Pressure Screening Quality Measure: Screening for High Blood Pressure and Follow-Up Documented Does Patient Have Any of the Following: Active Dx of HTN Blood Pressure Classification: Hypertensive Reading Systolic Measurement: 199 Diastolic Measurement: 120 Screening for High Blood Pressure: Patient Exclusion, Hx of HTN [G9744] - Advance Directives Quality Measure: Measure #47: Care Plan Advance Directives Established: No Advance Directives Information Provided To Patient: No Advance Directives on File: No Living Will: No Power of Memorial Designer: No Advance Care Planning: <Care Plan/Decision Maker Documented; Discussed & Documented> [2853F] - Elder Abuse Suspicion Index Screening: Elder Abuse Suspicion Index Screening Rely on people for bathing, dressing, shopping, banking, etc: No Prevented from getting food, clothes, medication, etc: No Made to feel shamed or threatened by someone: No Forced to sign papers or use money against will: No Feel afraid, touched in ways not wanted or hurt physically: No Poor eye contact, withdrawn, malnourished, cuts or bruises: No Screening Result: Negative result EASI Reference Information: Qiana HUA, Ishmael C, Andrés D, Richa Moreno.Development and validation of a tool to assist physicians identification of elder abuse: The Elder Abuse Suspicion Index (EASI ). Journal of Elder Abuse and Neglect, 2008; 20 (3): 276-300. - Elder Maltreatment Screen Quality Measures: Elder Maltreatment Screen and Follow-Up Plan Elder Maltreatment Screen: <Negative, No Follow-Up Plan Required> [G0349]
== END 2019-05-09 17:25 | disposition home or self-care (01) | DRG 191 ==
LOC: ER 20:18 → MEDSURG 22:23 → OBSVTOIN 22:23
PROVIDERS: ADMIT Internal Medicine; ATTEND Internal Medicine
DX: J44.1 Chronic obstructive pulmonary disease with (acute) exacerbation (principal); I82.412 Acute embolism and thrombosis of left femoral vein; R09.02 Hypoxemia; R05 Cough; Z79.01 Long term (current) use of anticoagulants; J20.9 Acute bronchitis, unspecified; R60.9 Edema, unspecified; L40.50 Arthropathic psoriasis, unspecified; M41.9 Scoliosis, unspecified; M81.0 Age-related osteoporosis without current pathological fracture; F17.210 Nicotine dependence, cigarettes, uncomplicated; Z86.718 Personal history of other venous thrombosis and embolism; Z87.898 Personal history of other specified conditions; Z85.41 Personal history of malignant neoplasm of cervix uteri; Z86.711 Personal history of pulmonary embolism
CPT/HCPCS: 71046; 80048; 80053; 85025; 85027; 85610; 85730; 86140; 94618; 94640; 94668; 94760; 94761; 96365; 96372; 96375; 99223; 99233; 99239; 99285; J0696; J1885; J2930; J7512; J7613